=== PATIENT | male | born 1985 | race Two or more races ===

== ENCOUNTER 2022-04-09 14:29 | Emergency (ER) | payer BC, MEDICAID ==
[~2022-04-09] VITALS: Ht 172.7 cm; Wt 75.0 kg
[2022-04-09] MEDS ORDERED: KETOROLAC 30MG/ML VIAL IV STA (15:19)
[2022-04-09] MEDS ORDERED: SODIUM CHLORIDE 0.9% 1,000 ML IV ONE (15:30)
[2022-04-09 15:42] LABS: BASOPHILS % 0.3 % (0.0-2.0); EOSINOPHILS % 3.2 % (0.0-5.0); HEMATOCRIT. 38.4 % (42.0-52.0); HEMOGLOBIN. 13.2 g/dL (14.0-18.0); MEAN PLATELET VOLUME 8.8 fl (7.4-10.4); MONOCYTES % 8.6 % (2.0-8.0); NEUTROPHILS % 68.9 % (40.0-76.0); PLATELET 304 x1000/uL (130-400); RED BLOOD CELL COUNT 4.87 mill/uL (4.7-6.1); RED CELL DISTRIBUTION WIDTH 13.7 % (11.6-14.6)
[2022-04-09 15:51] LABS: CHLORIDE 102 mEq/L (98-107)
[2022-04-09 15:59] LABS: ETHANOL BLOOD < 10 mg/dL
[2022-04-09 17:00] VITALS: BP 116/56
[2022-04-09] MEDS ORDERED: HYDR-4001 MT ×4 (17:15→18:44)
[2022-04-09] MEDS ORDERED: AMOX1TAB16 MT ×3 (17:15→18:44)
[2022-04-09] MEDS ORDERED: IBUP-2029 MT ×3 (17:15→18:44)
[2022-04-10] MEDS ORDERED: HYDR-4001 PO ×3 (10:27→10:55)
== END 2022-04-09 17:39 | disposition home or self-care (01) ==
LOC: ER 14:29
DX: R55 Syncope and collapse (principal); R53.1 Weakness; R42 Dizziness and giddiness; F17.290 Nicotine dependence, other tobacco product, uncomplicated
CPT/HCPCS: 36415; 70450; 70486; 80053; 80320; 82962; 83690; 85025; 93005; 96361; 96374; 99285; J1885; J7030; G0480